=== PATIENT | female | born 1960 | race American Indian/Alaskan Native ===

== ENCOUNTER 2016-12-11 09:02 | Emergency (ER) | payer BC, MEDICARE ==
[2016-12-11 09:02] VITALS: BMI 30.2
[2016-12-11 09:08] VITALS: BP 127/89; PULSE 79; RESP 20; TEMP 98.6; O2SAT 98
--- NOTE | 2016-12-11 10:57 | C.PDOC ---
History Of Present Illness 56 year old patient presents to the ED complaining of right sided neck and shoulder pain for the psat 3 days. Patient states the pain started after lifting weights while exercising. Patient denies any direct trauma, fever, numbness or weakness. Patient states she took Aleve last night with some relief. Time Seen by Provider: 12/11/16 09:39 Chief Complaint (Nursing): Upper Extremity Problem/Injury History Per: Patient History/Exam Limitations: no limitations Onset/Duration Of Symptoms: Days (3) Current Symptoms Are (Timing): Still Present Quality: "Pain" Severity: Mild Pain Scale Rating Of: 3 Recent travel outside of the [place]: No Past Medical History Reviewed: Historical Data, Nursing Documentation, Vital Signs Vital Signs: Last Vital Signs Temp 98.6 F 12/11/16 09:07 Pulse 79 12/11/16 09:07 Resp 20 12/11/16 09:07 BP 127/89 12/11/16 09:07 Pulse Ox 98 12/11/16 12:41 - Medical History PMH: Asthma, Hypercholesterolemia, Hyperlipidemia, Pneumonia - [facility] Procedures INJECT/INFUSE NEC (04/07/12) Family History: States: Unknown Family Hx - Social History Hx Tobacco Use: No Hx Alcohol Use: No Hx Substance Use: No - Immunization History Hx Tetanus Toxoid Vaccination: No Hx Influenza Vaccination: No Review Of Systems Except As Marked, All Systems Reviewed And Found Negative. Constitutional: Negative for: Fever Musculoskeletal: Positive for: Neck Pain (right sided), Shoulder Pain (right sided) Neurological: Negative for: Weakness, Numbness Physical Exam - Physical Exam Appears: Non-toxic, No Acute Distress Skin: Warm, Dry Head: Atraumatic, Normacephalic Neck: Normal ROM, Supple, Other (point tenderness to the right trapezius area) Chest: Symmetrical Cardiovascular: Rhythm Regular Respiratory: Normal Breath Sounds, No Rales, No Rhonchi, No Wheezing Back: Normal Inspection, No CVA Tenderness Extremity: Normal ROM, Capillary Refill (<2 seconds), No Deformity, No Swelling Extremity: Bilateral: Atraumatic, Normal Color And Temperature Neurological/Psych: Oriented x3, Normal Speech, Normal Cognition, Normal Motor, Normal Sensation Gait: Steady ED Course And Treatment O2 Sat by Pulse Oximetry: 98 (room air) Pulse Ox Interpretation: Normal Progress Note: Plan: Flexeril Disposition - Disposition Referrals: [facility], [Non-Staff] - Disposition: HOME/ ROUTINE Disposition Time: 09:35 Condition: GOOD Additional Instructions: Thank you for letting us take care of you today. Your provider was Dr. Frank. You were treated for a muscle strain. The emergency medical care you received today was directed at your acute symptoms. If you were prescribed any medication, please fill it and take as directed. It may take several days for your symptoms to resolve. Return to the Emergency Department if your symptoms worsen, do not improve, or if you have any other problems. Please contact your doctor or call one of the physicians/clinics you have been referred to that are listed on the Patient Visit Information form that is included in your discharge packet. Bring any paperwork you were given at discharge with you along with any medications you are taking to your follow up visit. Our treatment cannot replace ongoing medical care by a primary care provider (PCP) outside of the emergency department. Thank you for allowing the [facility] team to be part of your care today. Follow up with your doctor in 3-4 days for re-evaluation. Prescriptions: Cyclobenzaprine [Cyclobenzaprine HCl] 10 mg PO Q8 PRN #20 tab PRN Reason: Muscle Spasm Instructions: Muscle Strain (ED) - Clinical Impression Clinical Impression: Shoulder strain - Scribe Statement The provider has reviewed the documentation as recorded by the Scribe Edda Gilmore Provider Attestation: All medical record entries made by the Scribe were at my direction and personally dictated by me. I have reviewed the chart and agree that the record accurately reflects my personal performance of the history, physical exam, medical decision making, and the department course for this patient. I have also personally directed, reviewed, and agree with the discharge instructions and disposition.
== END 2016-12-11 09:55 | disposition home or self-care (01) ==
LOC: C.ER 09:02
DX: S46.911A Strain of unspecified muscle, fascia and tendon at shoulder and upper arm level, right arm, initial encounter (principal); X50.0XXA Overexertion from strenuous movement or load, initial encounter; Y93.B3 Activity, free weights

== ENCOUNTER 2017-03-24 22:04 | Emergency (ER) | payer BC ==
[2017-03-24 22:54] VITALS: RESP 18; O2SAT 99
--- NOTE | 2017-03-24 22:56 | C.PDOC ---
History Of Present Illness 56 year old female who presents to the ER with a complaint of feeling her blood pressure is elevated. Patient reports she has a flushed face and tension in her neck. During her last evaluation with Dr. Trejo, patient was told she needs to be on diet and exercise which she states she has been doing enthusiastically. Denies headache or use of blood pressure medication. Time Seen by Provider: 03/24/17 22:47 Chief Complaint (Nursing): High Blood Pressure History Per: Patient History/Exam Limitations: no limitations Onset/Duration Of Symptoms: Hrs Current Symptoms Are (Timing): Still Present Associated Symptoms: Other (Flushed face, tension in neck). denies: Chest Pain , Dyspnea, Dizziness, Blurred Vision, Focal Weakness, Headache Quality Of Symptoms: Asymptomatic Exacerbating Factor(s): Pos: None Recent travel outside of the [place]: No Past Medical History Reviewed: Historical Data, Nursing Documentation, Vital Signs Vital Signs: Last Vital Signs Temp 97.9 F 03/24/17 22:14 Pulse 70 03/24/17 22:53 Resp 18 03/24/17 22:53 BP 165/84 H 03/24/17 23:50 Pulse Ox 99 03/24/17 23:52 - Medical History PMH: Asthma, Hypercholesterolemia, Hyperlipidemia, Pneumonia Comment Only: COPD (sob) Surgical History: No Surg Hx - [facility] Procedures INJECT/INFUSE NEC (04/07/12) Family History: States: Unknown Family Hx - Social History Hx Tobacco Use: No Hx Alcohol Use: Yes (OCCASIONAL) Hx Substance Use: No - Immunization History Hx Tetanus Toxoid Vaccination: No Hx Influenza Vaccination: No Hx Pneumococcal Vaccination: No Review Of Systems Constitutional: Positive for: Other (Flushed face). Negative for: Fever, Chills Cardiovascular: Negative for: Chest Pain, Palpitations Respiratory: Negative for: Shortness of Breath Gastrointestinal: Negative for: Nausea, Vomiting Musculoskeletal: Positive for: Neck Pain (Tension) Physical Exam - Physical Exam Appears: Non-toxic, No Acute Distress Skin: Normal Color, Warm, Dry Head: Atraumatic, Normacephalic Oral Mucosa: Moist Neck: Normal, Supple Chest: Symmetrical, No Tenderness Cardiovascular: Rhythm Regular, No Murmur Respiratory: Normal Breath Sounds, No Rales, No Rhonchi, No Wheezing Gastrointestinal/Abdominal: Soft, No Tenderness Neurological/Psych: Oriented x3, Normal Speech, Normal Cognition ED Course And Treatment - Laboratory Results Result Diagrams: 03/24/17 23:19 03/24/17 23:19 Lab Interpretation: Normal ECG: Interpreted By Me ECG Rhythm: Sinus Rhythm ECG Interpretation: Normal Rate From EC O2 Sat by Pulse Oximetry: 99 (Room air) Pulse Ox Interpretation: Normal - Radiology CXR: Interpreted by Me CXR Interpretation: Yes: No Acute Disease Progress Note: EKG, blood work, CXR, and urinalysis ordered. Norvasc and microzide administered. Reevaluation Time: 23:45 Reassessment Condition: Improved Medical Decision Making Medical Decision Making: poorly controlled BP despite good adherence with diet and exercise regimen for the past 3 months Start HCTZ and Amlodipine and f/u w PMD in 2-3 weeks. Disposition Doctor Will See Patient In The: Office Counseled Patient/Family Regarding: Studies Performed, Diagnosis - Disposition Disposition: HOME/ ROUTINE Disposition Time: 23:54 Condition: GOOD Forms: [facility] (Telugu) - Clinical Impression Clinical Impression: Hypertension - Scribe Statement The provider has reviewed the documentation as recorded by the Scribarun Smith All medical record entries made by the Scribe were at my direction and personally dictated by me. I have reviewed the chart and agree that the record accurately reflects my personal performance of the history, physical exam, medical decision making, and the department course for this patient. I have also personally directed, reviewed, and agree with the discharge instructions and disposition.
[2017-03-24 23:22] LABS: BASO # 0.1 K/uL (0.0-0.2); BASO % 0.6 % (0.0-2.0); EOS % 0.5 % (0.0-4.0); HEMATOCRIT 37.5 % (34.0-47.0); LYMPH # 3.5 K/uL (1.0-4.3); LYMPH % 36.4 % (20.0-40.0); MEAN CELL VOLUME 85.9 fL (81.0-99.0); MEAN CORPUSCULAR HGB CONC 33.8 g/dL (33.0-37.0); MEAN PLATELET VOLUME 7.7 fL (7.2-11.7); MONO # 0.7 K/uL (0.0-0.8); MONO % 6.8 % (0.0-10.0); RED CELL DISTRIBUTION WIDTH 13.5 % (11.5-14.5); WHITE BLOOD COUNT 9.7 K/uL (4.8-10.8)
[2017-03-24 23:33] LABS: CHLORIDE 102 mmol/L (98-107)
[2017-03-24 23:34] LABS: POTASSIUM 3.9 mmol/L (3.6-5.2); SODIUM 139 mmol/L (132-148)
[2017-03-24 23:36] LABS: ALKALINE PHOSPHATASE 78 U/L (38-126); ALT/SGPT 25 U/L (9-52); AST/SGOT 23 U/L (14-36); BILIRUBIN,TOTAL 0.6 mg/dL (0.2-1.3); BLOOD UREA NITROGEN 13 mg/dL (7-17); CARBON DIOXIDE 25 mmol/L (22-30); GFR AFRICAN-AMERICAN > 60; TOTAL PROTEIN 7.9 g/dL (6.3-8.3)
[2017-03-24 23:37] LABS: CALCIUM 9.5 mg/dl (8.6-10.4); GLUCOSE,RANDOM 95 mg/dL (65-105)
[2017-03-25] LABS: RBC URINE 18 /hpf (0-3); URINE BACTERIA MOD (<OCC); URINE BILIRUBIN NEGATIVE (NEGATIVE); URINE BLOOD 2+ (NEGATIVE); URINE COLOR Yellow (YELLOW); URINE GLUCOSE (UA) NORMAL (Normal); URINE KETONE NEGATIVE (NEGATIVE); URINE LEUKOCYTE ESTERASE NEG Leu/uL (Negative); URINE PROTEIN NEGATIVE (NEGATIVE); URINE UROBILINOGEN NORMAL mg/dL (0.2-1.0); WBC URINE 2 /hpf (0-5)
[2017-03-25 00:42] VITALS: BP 147/83; PULSE 69; TEMP 97.7
--- NOTE | 2017-03-25 09:32 | RAD ---
HISTORY: SOB COMPARISON: Chest x-ray performed 06/18/16 TECHNIQUE: Chest PA and lateral FINDINGS: LUNGS: No focal consolidation. Please note that chest x-ray has limited sensitivity for the detection of pulmonary masses. PLEURA: No significant pleural effusion identified. No definite pneumothorax . CARDIOVASCULAR: Heart size appears within normal limits. OSSEOUS STRUCTURES: Degenerative changes of the spine. VISUALIZED UPPER ABDOMEN: Unremarkable. OTHER FINDINGS: None. IMPRESSION: No focal consolidation, significant pleural effusion, or definite pneumothorax identified.
--- NOTE | 2017-03-26 18:00 | CARD ---
APPROVED REPORT EKG Measurement Heart [id number] <Conclusion> Normal sinus rhythm with sinus arrhythmia Normal ECG
== END 2017-03-25 00:42 | disposition home or self-care (01) ==
LOC: C.ER 22:04
DX: I10 Essential (primary) hypertension (principal); E78.00 Pure hypercholesterolemia, unspecified; F17.210 Nicotine dependence, cigarettes, uncomplicated

== ENCOUNTER 2018-02-25 17:59 | Emergency (ER) | payer BC ==
[2018-02-25 18:07] VITALS: BP 150/84; PULSE 79; RESP 18; TEMP 98.7; O2SAT 98
[2018-02-25] MEDS ORDERED: Albuterol 0.083% Inhal Sol (2.5 mg/3 mL) UD IH STA (18:35)
[2018-02-25] MEDS ORDERED: Amoxicillin-Clav 875-125 mg Tab PO STA (18:36)
[2018-02-25] MEDS ORDERED: Amoxicillin-Clav 875-125 mg Tab PO ONE (18:45)
[2018-02-25] MEDS ORDERED: Albuterol 0.083% Inhal Sol (2.5 mg/3 mL) UD ONE (18:45)
--- NOTE | 2018-02-25 19:16 | C.PDOC ---
History Of Present Illness 57 yo female w/PMHx of HTN, asthma, smoker, come in for evaluation of cold sx for past few days associated with bodyaches, malaise, low grade fever, sore throat, dry cough. Pt reports, developed some chest tightness now with cough". Otherwise, pt denies high fever, chills, headache, neck pain, drooling, SOB, dyspnea, abd. pain, V/D, back pain, UTI sx, denies recent travel or known sick contact. Ambulate to Ed for evaluation, not in any apparent distress. Time Seen by Provider: 02/25/18 18:01 Chief Complaint (Nursing): Flu-like Symptoms History Per: Patient Past Medical History Reviewed: Historical Data, Nursing Documentation, Vital Signs Vital Signs: Last Vital Signs Temp 98.7 F 02/25/18 18:03 Pulse 79 02/25/18 18:03 Resp 18 02/25/18 18:03 BP 150/84 02/25/18 18:03 Pulse Ox 98 02/25/18 18:03 - Medical History PMH: Asthma, Hypercholesterolemia, Hyperlipidemia, Pneumonia Denies: Depression, Chronic Kidney Disease Comment Only: COPD (sob) Surgical History: Denies: Pacemaker - [facility] Procedures INJECT/INFUSE NEC (04/07/12) Family History: States: Unknown Family Hx - Social History Hx Tobacco Use: Yes Hx Alcohol Use: Yes (OCCASIONAL) Hx Substance Use: No - Immunization History Hx Tetanus Toxoid Vaccination: No Hx Influenza Vaccination: No Hx Pneumococcal Vaccination: No Review Of Systems Except As Marked, All Systems Reviewed And Found Negative. Constitutional: Positive for: Fever. Negative for: Chills ENT: Positive for: Nose Discharge, Nose Congestion. Negative for: Ear Pain, Ear Discharge, Throat Pain, Throat Swelling Cardiovascular: Negative for: Chest Pain, Palpitations, Edema, Light Headedness Respiratory: Positive for: Cough. Negative for: Shortness of Breath, Wheezing Gastrointestinal: Negative for: Nausea, Vomiting, Abdominal Pain, Diarrhea Genitourinary: Negative for: Dysuria Musculoskeletal: Negative for: Neck Pain, Back Pain Skin: Negative for: Rash Neurological: Negative for: Altered Mental Status, Headache, Dizziness Physical Exam - Physical Exam Appears: Well, Non-toxic, No Acute Distress Skin: Normal Color, Warm, Dry, No Rash Head: Normacephalic Eye(s): bilateral: PERRL Ear(s): Bilateral: Normal Nose: No Flaring, Discharge (B/L nasal congestion) Oral Mucosa: Moist Tongue: Normal Appearing Lips: Normal Appearing Throat: Erythema (mod B/L, no edema.), No Exudate, No Drooling Neck: Trachea Midline, Supple Cardiovascular: Rhythm Regular, No Murmur, No JVD Respiratory: No Decreased Breath Sounds, No Accessory Muscle Use, No Stridor, Wheezing (scattered bibasilar expiratory wheezing) Gastrointestinal/Abdominal: Soft, No Tenderness, No Distention, No Guarding Back: No CVA Tenderness Extremity: Normal ROM, No Pedal Edema, No Deformity Neurological/Psych: Oriented x3, Normal Speech ED Course And Treatment O2 Sat by Pulse Oximetry: 98 Pulse Ox Interpretation: Normal Progress Note: On re-eval, pt is afebrile, hemodynamicaly stable. Non-toxic. PulsEOx 98% RA. ENT: No acute findings. neck: SUpple, (-) JVD. Lungs: CTA B/L , BS equal B/L. ABd: benign. Pt has clinical findings c/w asthma bronchitis. Pt advised. ref. to f/u with PMD in 2-3 days for re-eval. return to ED if any worsening or new changes. Disposition Counseled Patient/Family Regarding: Diagnosis, Need For Followup, Rx Given - Disposition Referrals: Jaden Trejo MD [Staff Provider] - Disposition: HOME/ ROUTINE Disposition Time: 19:00 Condition: STABLE Additional Instructions: Encourage fluids Take medication as prescribed Follow up with PMD in2 -3 days for re-evaluation. return to ED if any worsening or new changes. Prescriptions: Amoxicillin/Clavulanate [Augmentin 875 MG-125 MG] 1 tab PO BID #14 tab Benzonatate [Tessalon Perle] 100 mg PO TID #14 capsule Prednisone [Deltasone] 40 mg PO DAILY #6 tablet Instructions: Acute Bronchitis, Asthma in Adults - Clinical Impression Clinical Impression: Bronchitis, Asthma
== END 2018-02-25 19:46 | disposition home or self-care (01) ==
LOC: C.ER 17:59
DX: J45.909 Unspecified asthma, uncomplicated (principal); I10 Essential (primary) hypertension; E78.00 Pure hypercholesterolemia, unspecified; F17.200 Nicotine dependence, unspecified, uncomplicated

== ENCOUNTER 2018-10-26 11:46 | Emergency (ER) | payer BC, MEDICARE ==
[2018-10-26 11:52] VITALS: RESP 18; TEMP 98.5
--- NOTE | 2018-10-26 12:08 | C.PDOC ---
History Of Present Illness 58 yo female come in for evaluation of left shoulder pain radiating down to left wrist developed since yesterday after sustained mechanical fall. Pt reports, 'tripped while running after train, trying to break fall with left arm". Pain is localized over left shoulder with radiating down to left wrist with movement. denies head injury, LOC, syncope, headache, dizziness, visual changes, neck pain, CP, SOB, dypsnea, diaphoresis, palpitation, denies obvious deformity, weakness, sensory or vascular deficit to Left arm. Ambulatory with stable gait. - HPI Time Seen by Provider: 10/26/18 11:57 Chief Complaint (Nursing): Trauma History Per: Patient Past Medical History Reviewed: Historical Data, Nursing Documentation, Vital Signs Vital Signs: Last Vital Signs Temp 98.5 F 10/26/18 11:50 Pulse 93 H 10/26/18 11:50 Resp 18 10/26/18 11:50 BP 148/95 H 10/26/18 11:50 Pulse Ox 100 10/26/18 11:50 Primary Care Provider: Jaden Trejo - Medical History PMH: Asthma, Hypercholesterolemia, Hyperlipidemia, Pneumonia Denies: Depression Comment Only: COPD (sob) Surgical History: No Surg Hx - [facility] Procedures INJECT/INFUSE NEC (04/07/12) Family History: States: Unknown Family Hx - Social History Hx Tobacco Use: Yes Hx Alcohol Use: Yes (OCCASIONAL) Hx Substance Use: No - Immunization History Hx Tetanus Toxoid Vaccination: No Hx Influenza Vaccination: No Hx Pneumococcal Vaccination: No Review Of Systems Except As Marked, All Systems Reviewed And Found Negative. Constitutional: Negative for: Fever Eyes: Negative for: Vision Change ENT: Negative for: Ear Discharge, Nose Discharge Cardiovascular: Negative for: Chest Pain, Palpitations, Edema, Light Headedness Respiratory: Negative for: Shortness of Breath Gastrointestinal: Negative for: Nausea, Vomiting Genitourinary: Negative for: Incontinence Musculoskeletal: Positive for: Shoulder Pain, Arm Pain. Negative for: Neck Pain, Back Pain Skin: Negative for: Bruising Neurological: Negative for: Weakness, Numbness, Altered Mental Status, Dizziness Physical Exam - Physical Exam Appears: Well, Non-toxic, No Acute Distress Skin: Normal Color, Warm, Dry, No Ecchymosis Head: Atraumatic, Normacephalic Eye(s): bilateral: PERRL Ear(s): Bilateral: Normal Nose: No Deformity, No Tenderness Oral Mucosa: Moist, No Drooling Neck: Normal ROM, Trachea Midline, No Midline Cervical Tenderness, No Paracervical Tenderness, No Step Off Deformity, Supple Chest: Symmetrical, No Deformity, No Tenderness Cardiovascular: Rhythm Regular, No Murmur, No JVD Respiratory: No Decreased Breath Sounds, No Accessory Muscle Use, No Stridor Gastrointestinal/Abdominal: Soft, No Tenderness Back: No Vertebral Tenderness, No Paraspinal Tenderness Extremity: Normal ROM (decrease over Left shoulder to abduction and extension due to pain), Tenderness (diffuse over superior aspect left shoulder extend down to Left distal humerus and dorsal asepct left wrist. NO palpable deformity, no edema, no neurovascular deficits distally to injury), Capillary Refill (less than 2sec to left hand), No Deformity, No Swelling Pulses: Left Radial: Normal Neurological/Psych: Oriented x3, Normal Speech, Normal Motor, Normal Sensation, Normal Reflexes ED Course And Treatment O2 Sat by Pulse Oximetry: 100 Pulse Ox Interpretation: Normal - Other Rad Shoulder, left X-Ray: Interpreted by Me, Viewed By Me Interpretation: (-) acute fx or dislocation Wrist, left X-Ray: Interpreted by Me, Viewed By Me Interpretation: (-) acute fx or dislocation Progress Note: On re-eval, pt is afebrile, hemodynamicaly stable. non-toxic. Ambulatory in ED with stable gait. head: AT/NC. neck: SUpple, (-) midline tenderness. Lungs: CTA B/L, BS equal B/L. CVS: (+)S1S2, reg. LUE: tenderness left shoulder, no neurovascular deficits. neurologicaly intact. Imagings review and appears normal. Arm sling applied to Left shoulder. Pt has clinical findings c/w Left shoulder strain/contusion. Pt advised and ref. to f/u with Ortho in 2-3 days for re-eavl. return to ED if any worsening or new changes Disposition Counseled Patient/Family Regarding: Studies Performed, Diagnosis, Need For Followup, Rx Given - Disposition Referrals: Jaden Trejo MD [Staff Provider] - Disposition: HOME/ ROUTINE Disposition Time: 12:15 Condition: STABLE Additional Instructions: Sling for 1 week Ligt duty to Left arm take pain medication as prescribed Follow up with PMD, Orthopedist in 2-3 days for re-evaluation. return if nay worsening or new changes. Prescriptions: diaZEpam [Valium] 2 mg PO HS #4 tab Methocarbamol [Robaxin] 500 mg PO TID #14 tab Instructions: Shoulder Sprain Forms: [facility] (Romansh), Work Excuse - Clinical Impression Clinical Impression: Shoulder strain
[2018-10-26 12:56] VITALS: BP 142/83; PULSE 78
[2018-10-26 12:59] VITALS: O2SAT 100
--- NOTE | 2018-10-26 14:13 | RAD ---
Date of service: 10/26/2018 PROCEDURE: Left Wrist Radiographs. HISTORY: INJURY COMPARISON: None. TECHNIQUE: 4 views obtained. FINDINGS: BONES: Normal. No fracture. JOINTS: Normal. No dislocation. SOFT TISSUES: Normal. OTHER FINDINGS: None. IMPRESSION: No evidence of acute fracture or dislocation.
--- NOTE | 2018-10-26 14:13 | RAD ---
Date of service: 10/26/2018 PROCEDURE: Radiographs of the Left Shoulder HISTORY: injury COMPARISON: No prior. TECHNIQUE: 3 views obtained. FINDINGS: BONES: Normal. No fracture. JOINTS: Normal. Glenohumeral and acromioclavicular joints preserved. No osteoarthritis. SOFT TISSUES: Normal. OTHER FINDINGS: None. IMPRESSION: No evidence of acute fracture or dislocation.
== END 2018-10-26 12:56 | disposition home or self-care (01) ==
LOC: C.ER 11:46
DX: S46.912A Strain of unspecified muscle, fascia and tendon at shoulder and upper arm level, left arm, initial encounter (principal); W01.0XXA Fall on same level from slipping, tripping and stumbling without subsequent striking against object, initial encounter; Y92.480 Sidewalk as the place of occurrence of the external cause

== ENCOUNTER 2018-11-10 07:10 | Outpatient (CLI) | payer BC | END 2018-11-10 07:11 | disposition home or self-care (01) | LOC: C.MRIC 07:11 ==